=== PATIENT | female | born 1955 | race Caucasian/White ===

== ENCOUNTER 2018-08-22 05:06 | Emergency (ER) | payer OTHER | END 2018-08-22 07:48 | disposition left against medical advice (07) | LOC: ERS 05:06 | DX: Z53.21 Procedure and treatment not carried out due to patient leaving prior to being seen by health care provider (principal) ==

== ENCOUNTER 2018-09-25 14:57 | Outpatient (CLI) | payer OTHER ==
--- NOTE | 2018-09-25 16:01 | MMO ---
Bilateral MAMMO Bilat Screen [facility]. CLINICAL HISTORY: Patient is 63 years old and is seen for screening. The patient has no family history of breast cancer. The patient has no personal history of cancer. VIEWS: The views performed were: bilateral craniocaudal with tomosynthesis and bilateral mediolateral oblique with tomosynthesis. FILMS COMPARED: The present examination has been compared to prior imaging studies performed at [facility] on 03/16/2005, 03/18/2005, 03/15/2006, 07/20/2012 and 09/09/2013. MAMMOGRAM FINDINGS: There are scattered fibroglandular densities. There are no suspicious masses, suspicious calcifications, or new areas of architectural distortion. IMPRESSION: THERE IS NO MAMMOGRAPHIC EVIDENCE OF MALIGNANCY. A ROUTINE FOLLOW-UP MAMMOGRAM IN 1 YEAR IS RECOMMENDED. THE RESULTS OF THIS EXAM WERE SENT TO THE PATIENT. ACR BI-RADS Category 1 - Negative MAMMOGRAPHY NOTE: 1. A negative mammogram report should not delay a biopsy if a dominant of clinically suspicious mass is present. 2. Approximately 10% to 15% of breast cancers are not detected by mammography. 3. Adenosis and dense breasts may obscure an underlying neoplasm.
--- NOTE | 2018-09-25 16:13 | BD ---
Exam: DEXA Bone Density 09/25/18 HISTORY: Postmenopausal. Lumbar Spine: BMD (g/cm2) T-SCORE L1 1.005 +0.1 L2 0.911 -1.1 L3 0.834 -2.3 L4 0.971 -0.8 L1-L4 0.928 -1.1 Left ulnar distal 0.465 +0.4 Mid 0.577 -0.6 One third 0.670 -0.4 Total left ulnar: 0.565 -0.3 Impression: Normal bone mineral density of the left forearm and osteopenia of the lumbar spine. POS: [facility]
== END 2018-09-25 14:58 | disposition home or self-care (01) ==
LOC: BICMAMMO 14:57
PROVIDERS: ATTEND Physician Assistant
DX: Z12.31 Encounter for screening mammogram for malignant neoplasm of breast (principal); Z13.820 Encounter for screening for osteoporosis
CPT/HCPCS: 77063; 77067; 77080

== ENCOUNTER 2018-10-25 21:38 | Emergency (ER) | payer OTHER | END 2018-10-25 21:56 | disposition home or self-care (01) | LOC: SCSER 21:38 | DX: L03.114 Cellulitis of left upper limb (principal); Z87.891 Personal history of nicotine dependence | CPT/HCPCS: 99283 ==

== ENCOUNTER 2020-07-21 09:43 | Outpatient (CLI) | payer BC ==
[2020-07-21] MEDS ORDERED: Magnevist 469MG/ML 20 ML VIAL ONE (11:12)
--- NOTE | 2020-07-21 12:09 | MRI ---
CERVICAL SPINE MRI WITH AND WITHOUT CONTRAST: HISTORY: Cervical radiculopathy. Neck pain that reason the both shoulders x1 month. Patient has had 2 previous surgeries of the cervical spine. COMPARISON: 03/25/2014. FINDINGS: Metastasis be artifact secondary to anterior fusion changes at C4 and C5. There appears be an anterio r fusion plate with transvertebral body screws. There is a disc prosthesis at C4-C5. Lack of complete segmentation at C5-C6 is noted. There is straightening of cervical lordosis. No significant STIR hyperintensity to suggest ligamentous injury or vertebral body edema. Visualized brain parenchyma, cervicomedullary junction, cervical cord and the upper thoracic cord have a normal size a nd signal intensity. There is no abnormal enhancement with regards to the vertebral bodies, visualized brain parenchyma, c ervicomedullary junction, cervical cord and upper thoracic cord. C2-C3: Disc desiccation without significant loss of disc space height. No significant central canal s tenosis. Patent bilateral neural foramina. C3-C4: Disc desiccation without significant loss of disc space height. Broad-based disc bulge abuts t he thecal sac. No significant central canal stenosis. Patent bilateral neural foramina. C4-C5: Disc prosthesis. Broad-based osteophyte ridge with moderate central canal stenosis. Mild right neural foramina narrowing due to uncovertebral hypertrophy. Patent left neural foramen. C5-C6: Lack of complete segmentation does not demonstrate any significant disc space. At the level th e neural foramina, there is no significant central canal stenosis. Patent neural foramina. C6-C7: Adequate disc hydration. There is a central disc herniation with inferior disc migration. Ther e is an associated annular fissure. Moderate central canal stenosis. Patent bilateral neural foramina. There is a peroneal sleeve cyst in the right neural foramen. C7-T1: No significant central canal stenosis. Neural foramina are patent. IMPRESSION: 1. Fusion changes at C4-C5. 2. Redemonstration of lack of complete segmentation at C5-C6. 3. Central disc herniation with associated annular fissure and inferior disc migration at C6-C7. Mode rate central canal stenosis. Transcribed Date/Time: 07/21/2020 12:16 PM
== END 2020-07-21 09:44 | disposition home or self-care (01) ==
LOC: BICMRI 09:43
PROVIDERS: ATTEND Neurological Surgery
DX: M50.123 Cervical disc disorder at C6-C7 level with radiculopathy (principal); M48.02 Spinal stenosis, cervical region; Z98.1 Arthrodesis status
CPT/HCPCS: 72156; 82565; A9579

== ENCOUNTER 2020-11-02 10:01 | Outpatient (CLI) | payer BC | END 2020-11-02 10:02 | disposition home or self-care (01) | LOC: BICRAD 10:01 | PROVIDERS: ATTEND Neurological Surgery | DX: M54.2 Cervicalgia (principal); M47.812 Spondylosis without myelopathy or radiculopathy, cervical region; Z98.890 Other specified postprocedural states | CPT/HCPCS: 72040 ==

== ENCOUNTER 2021-02-17 14:32 | Outpatient (CLI) | payer BC | END 2021-02-17 14:33 | disposition home or self-care (01) | LOC: BICRAD 14:32 | PROVIDERS: ATTEND Family Medicine | DX: M53.3 Sacrococcygeal disorders, not elsewhere classified (principal); S32.10XA Unspecified fracture of sacrum, initial encounter for closed fracture | CPT/HCPCS: 72220 ==

== ENCOUNTER 2023-01-25 05:25 | Day surgery (SDC) | payer MEDICARE ==
[2023-01-20 13:13] VITALS: BMI 30.1
[2023-01-25] MEDS ORDERED: Fentanyl 250 MCG/5 ML VIAL ONE (06:11)
[2023-01-25] MEDS ORDERED: Thrombin 5000 UNITS/5 ML VIAL ONE (06:11)
[2023-01-25] MEDS ORDERED: LevoFLOXacin 500 mg/D5W 100 ML BAG ONE (06:50)
[2023-01-25] MEDS ORDERED: Clindamycin/D5W 900 mg/50 ml Premix Bag ONE (06:50)
[2023-01-25] MEDS ORDERED: Midazolam HCl 2 mg/2 ml Vial ONE (06:57)
[2023-01-25] MEDS ORDERED: Lidocaine 1% PF 5 ML VIAL ONE (07:15)
[2023-01-25] MEDS ORDERED: Albuterol HFA (OR) 200 PUFF INH ONE (07:15)
[2023-01-25] MEDS ORDERED: PROPOFOL 200 MG/20 ML VIAL ONE (07:15)
[2023-01-25] MEDS ORDERED: Ondansetron PF 4 MG/2 ML Vial ONE (07:15)
[2023-01-25] MEDS ORDERED: Rocuronium Bromide 10 MG/ML (10ML VIAL) ONE (07:15)
[2023-01-25] MEDS ORDERED: Dexamethasone 20 MG/5 ML VIAL ONE (07:15)
[2023-01-25] MEDS ORDERED: SUGAMMADEX SODIUM 200 MG/2 ML VIAL ONE (08:04)
[2023-01-25] MEDS ORDERED: diphenhydrAMINE 50 MG/ML VIAL ONE (09:34)
[2023-01-25] MEDS ORDERED: Cyclobenzaprine 10 MG TAB ONE (09:58)
[2023-01-25] MEDS ORDERED: HYDROcodone/Acetaminophen 5/325 mg Tablet ONE (11:42)
== END 2023-01-25 12:15 | disposition home or self-care (01) ==
LOC: SDC 05:25
PROVIDERS: ATTEND Neurological Surgery
PROC: 0RG20A0 Fusion of 2 or more Cervical Vertebral Joints with Interbody Fusion Device, Anterior Approach, Anterior Column, Open Approach (ICD-10-PCS; principal; 2023-01-25)
PROC: 01N10ZZ Release Cervical Nerve, Open Approach (ICD-10-PCS; 2023-01-25)
DX: M54.12 Radiculopathy, cervical region (principal); M48.02 Spinal stenosis, cervical region; M85.80 Other specified disorders of bone density and structure, unspecified site; E78.5 Hyperlipidemia, unspecified; J30.2 Other seasonal allergic rhinitis; F32.A Depression, unspecified; F41.9 Anxiety disorder, unspecified; J44.9 Chronic obstructive pulmonary disease, unspecified; Z79.899 Other long term (current) drug therapy; Z98.1 Arthrodesis status; Z90.710 Acquired absence of both cervix and uterus; Z98.51 Tubal ligation status; Z96.643 Presence of artificial hip joint, bilateral; Z87.891 Personal history of nicotine dependence; Z88.0 Allergy status to penicillin
CPT/HCPCS: 20930; 20936; 22551; 22552; 22845; 22853 ×2; C1713 ×2; C1889; J1100; J1200; J1956; J2250; J2405; J2704; J3010; J3490